=== PATIENT | female | born 1995 | race African-American/Black ===

== ENCOUNTER → 2017-05-14 | Outpatient (CLI) | payer BC ==
[~2017-05-14] MED LIST: BCPILLS PO; CETI10TA84 PO; HYDR-5688 PO; NAPR-1168 PO; SCOP1.5D TD
--- NOTE | 2017-05-14 09:13 | DIAGNOSTIC IMAGING REPORT ---
LEFT KNEE 4 OR MORE CLINICAL HISTORY: CHRONIC LEFT KNEE PAIN pain COMPARISON: None. DISCUSSION: The bones and joint spaces appear intact. There is no evidence of fracture, dislocation or bony disease. Postoperative changes consistent with a prior anterior cruciate ligament repair. No significant joint effusion. IMPRESSION: No acute process status post anterior cruciate ligament repair The above report was generated using voice recognition software. It may contain grammatical, syntax or spelling errors. Electronically signed by: Shailesh Santizo M.D. 05/14/2017 9:11 AM Dictated Date/Time: 05/14/2017 9:11 AM
== END | disposition home or self-care (01) ==
LOC: C.RDSM 08:19
PROVIDERS: ATTEND Internal Medicine
DX: M25.562 Pain in left knee (principal)

== ENCOUNTER → 2017-12-23 | Outpatient (CLI) | payer OTHER ==
--- NOTE | 2017-12-23 10:46 | DIAGNOSTIC IMAGING REPORT ---
R KNEE 4 OR MORE HISTORY: 22 years-old Female LATERAL/POSTERIOR RIGHT KNEE PAIN acute right knee pain COMPARISON: None available TECHNIQUE: Rives, lateral, AP axial and AP views of the right knee FINDINGS: No acute fracture, subluxation, osteochondral defect or significant degenerative changes. Small joint effusion. No opaque foreign body. IMPRESSION: Small joint effusion without acute bony abnormality. The above report was generated using voice recognition software. It may contain grammatical, syntax or spelling errors. Electronically signed by: Stephan Ramirez M.D. 12/23/2017 10:44 AM Dictated Date/Time: 12/23/2017 10:43 AM
== END | disposition home or self-care (01) ==
LOC: C.RDSM 10:28
PROVIDERS: ATTEND Internal Medicine
DX: M25.461 Effusion, right knee (principal)